=== PATIENT | female | born 1940 | race Caucasian/White ===

== ENCOUNTER 2018-01-30 09:42 | Inpatient (IN) ==
[2018-01-30] MEDS ORDERED: Diphtheria/Tetanus/Pertussis Vaccine Inj 0.5 ML Syringe IM ONE (09:59)
[2018-01-30] MEDS ORDERED: Morphine Inj 4 MG/ML Vial ONE (09:59)
[2018-01-30 10:19] LABS: Baso # (Auto) 0.1 th/mm3 (0.0-0.2); Baso % (Auto) 0.3 % (0.0-2.0); Eos # (Auto) 0.2 th/mm3 (0.0-0.4); Hemoglobin 14.3 gm/dL (11.6-15.3); Lymph % (Auto) 11.8 % (9.0-44.0); Mean Corpuscular HGB Conc 34.8 % (32.0-36.0); Mean Corpuscular Hemoglobin 33.6 pg (27.0-34.0); Mean Corpuscular Volume 96.6 fL (80.0-100.0); Mean Platelet Volume 8.3 fL (7.0-11.0); Mono # (Auto) 0.7 th/mm3 (0.0-0.9); Mono % (Auto) 4.4 % (0.0-8.0); Neut # (Auto) 14.1 th/mm3 (1.8-7.7); Neut % (Auto) 82.5 % (16.0-70.0); Platelet Count 278 th/mm3 (150-450); Red Blood Count 4.24 mil/mm3 (4.00-5.30); Red Cell Distribution Width 13.2 % (11.6-17.2); White Blood Count 17.1 th/mm3 (4.0-11.0)
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
[2018-01-30 10:30] LABS: Activated Partial Thrombo Time 21.9 sec (23.4-31.7); Prothrombin Time 10.6 sec (9.8-11.6)
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
[2018-01-30] MEDS ORDERED: Morphine Inj 4 MG/ML Vial IV.PUSH PRN (11:34)
[2018-01-30] MEDS: Pantoprazole Inj 40 MG Vial IV.PUSH SCH (12:26)
[2018-01-30] MEDS: Sod Chloride 0.9% Inj 1,000 ML IV.CONT SCH (12:31)
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
[2018-01-30 13:06] LABS: Baso # (Auto) 0.1 th/mm3 (0.0-0.2); Baso % (Auto) 0.2 % (0.0-2.0); Eos % (Auto) 0.1 % (0.0-4.0); Hematocrit 37.2 % (35.0-46.0); Hemoglobin 12.8 gm/dL (11.6-15.3); Lymph % (Auto) 3.9 % (9.0-44.0); Mean Corpuscular HGB Conc 34.4 % (32.0-36.0); Mean Corpuscular Hemoglobin 33.2 pg (27.0-34.0); Mean Corpuscular Volume 96.3 fL (80.0-100.0); Mean Platelet Volume 8.5 fL (7.0-11.0); Mono # (Auto) 1.6 th/mm3 (0.0-0.9); Mono % (Auto) 6.5 % (0.0-8.0); Neut # (Auto) 22.5 th/mm3 (1.8-7.7); Neut % (Auto) 89.3 % (16.0-70.0); Platelet Count 242 th/mm3 (150-450); Red Blood Count 3.86 mil/mm3 (4.00-5.30); Red Cell Distribution Width 13.2 % (11.6-17.2); White Blood Count 25.1 th/mm3 (4.0-11.0)
[2018-01-30] MEDS: Lidocaine 5% Patch T-DERMAL SCH (13:23)
[2018-01-30] MEDS: Methocarbamol 500 MG Tablet PO SCH ×2 (15:23→21:32)
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
[2018-01-30] MEDS: Senna/Docusate Sodium 8.6/50 MG Tablet PO SCH (20:21)
[2018-01-31] MEDS: Sod Chloride 0.9% Inj 1,000 ML IV.CONT SCH (02:55)
[2018-01-31 04:44] LABS: Baso % (Auto) 0.2 % (0.0-2.0); Hematocrit 31.4 % (35.0-46.0); Hemoglobin 10.8 gm/dL (11.6-15.3); Lymph # (Auto) 0.9 th/mm3 (1.0-4.8); Lymph % (Auto) 7.8 % (9.0-44.0); Mean Corpuscular HGB Conc 34.5 % (32.0-36.0); Mean Corpuscular Volume 95.6 fL (80.0-100.0); Mean Platelet Volume 8.4 fL (7.0-11.0); Mono # (Auto) 0.8 th/mm3 (0.0-0.9); Mono % (Auto) 7.1 % (0.0-8.0); Neut # (Auto) 9.5 th/mm3 (1.8-7.7); Neut % (Auto) 84.9 % (16.0-70.0); Platelet Count 166 th/mm3 (150-450); Red Blood Count 3.29 mil/mm3 (4.00-5.30); Red Cell Distribution Width 13.3 % (11.6-17.2); White Blood Count 11.2 th/mm3 (4.0-11.0)
[2018-01-31 05:01] LABS: Albumin 2.7 g/dL (3.4-5.0); Anion Gap 8 meq/L (5-15); Aspartate Aminotransferase 134 U/L (15-37); Blood Urea Nitrogen 21 mg/dL (7-18); Calcium 7.6 mg/dL (8.5-10.1); Carbon Dioxide 24.9 meq/L (21.0-32.0); Chloride 109 meq/L (98-107); Glomerular Filtration Rate 78 mL/min (>89); Glucose,Random 129 mg/dL (74-106); Potassium 3.5 meq/L (3.5-5.1); Sodium 142 meq/L (136-145)
[2018-01-31 05:04] LABS: Alanine Aminotransferase 125 U/L (10-53); Alkaline Phosphatase 54 U/L (45-117); Total Protein 5.7 g/dL (6.4-8.2)
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
[2018-01-31] MEDS: Methocarbamol 500 MG Tablet PO SCH ×3 (05:27→21:47)
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
[2018-01-31] MEDS: Lidocaine 5% Patch T-DERMAL SCH (09:17)
[2018-01-31] MEDS: Senna/Docusate Sodium 8.6/50 MG Tablet PO SCH ×2 (09:17→21:47)
[2018-01-31] MEDS: Polyethylene Glycol 3350 17 GM Packet PO SCH (09:18)
--- NOTE | 2018-01-31 09:52 | CT ---
EXAM DATE: 01/31/2018 9:38 AM EST AGE/SEX: 78 years / Female INDICATIONS: Altered Mental Status CLINICAL DATA: This is the patient's subsequent encounter. Patient reports that signs and symptoms h ave been present for 1 day and indicates a pain score of 0/10. MEDICAL/SURGICAL HISTORY: Hypertension. None. RADIATION DOSE: 56.35 CTDI (mGy) COMPARISON: [facility] [place], CT HEAD W/O CONTRAST, 01/30/2018. . TECHNIQUE: CT of the head without contrast. Using automated exposure control and adjustment of the mA and/or kV according to patient size, radiation dose was kept as low as reasonably achievable to ob tain optimal diagnostic quality images. DICOM format image data is available electronically for revi ew and comparison. FINDINGS: Cerebrum: The ventricles and cortical sulci are widened. There is decreased density in the cerebral white matter.. No evidence of midline shift, mass lesion, hemorrhage or acute infarction. No extraa xial fluid collections are seen. Posterior Fossa: The cerebellum and brainstem are intact. The 4th ventricle is midline. The cerebe llopontine angle is unremarkable. Extracranial: The visualized portion of the orbits is intact. Skull: The calvaria is intact. No evidence of skull fracture. CONCLUSION: 1. No acute abnormality is seen. 2. Age-related atrophy and suspected small vessel ischemic change in the white matter. . Electronically signed by: Bigg Delgado MD Board Certified Radiologist 01/31/2018 9:51 AM EST
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
[2018-01-31] MEDS: Pantoprazole Inj 40 MG Vial IV.PUSH SCH (11:16)
--- NOTE | 2018-02-01 02:01 | ECG ---
Date Performed: 01/31/2018 Time Performed: 07:57:18 PTAGE: 78 years EKG: Sinus rhythm with PAC(s). Possible anterior infarct - age undetermined Lateral T wave changes are nonspecific Low QRS voltages in precordial leads Abnormal ECG NO PREVIOUS TRACING DOCTOR: Nakul Guerrero Interpretating Date/Time 02/01/2018 01:59:33
[2018-02-01 05:34] LABS: Baso % (Auto) 0.3 % (0.0-2.0); Eos % (Auto) 0.3 % (0.0-4.0); Hematocrit 29.2 % (35.0-46.0); Hemoglobin 10.2 gm/dL (11.6-15.3); Lymph # (Auto) 0.9 th/mm3 (1.0-4.8); Lymph % (Auto) 7.8 % (9.0-44.0); Mean Corpuscular HGB Conc 34.9 % (32.0-36.0); Mean Corpuscular Volume 94.7 fL (80.0-100.0); Mean Platelet Volume 8.5 fL (7.0-11.0); Mono # (Auto) 0.9 th/mm3 (0.0-0.9); Mono % (Auto) 7.2 % (0.0-8.0); Neut # (Auto) 10.1 th/mm3 (1.8-7.7); Neut % (Auto) 84.4 % (16.0-70.0); Platelet Count 154 th/mm3 (150-450); Red Blood Count 3.08 mil/mm3 (4.00-5.30); Red Cell Distribution Width 13.2 % (11.6-17.2); White Blood Count 11.9 th/mm3 (4.0-11.0)
[2018-02-01 05:45] LABS: Alanine Aminotransferase 100 U/L (10-53); Albumin 2.8 g/dL (3.4-5.0); Anion Gap 8 meq/L (5-15); Aspartate Aminotransferase 90 U/L (15-37); Blood Urea Nitrogen 15 mg/dL (7-18); Calcium 7.9 mg/dL (8.5-10.1); Carbon Dioxide 28.2 meq/L (21.0-32.0); Chloride 102 meq/L (98-107); Glomerular Filtration Rate Greater Than 89 mL/min (>89); Glucose,Random 112 mg/dL (74-106); Potassium 3.5 meq/L (3.5-5.1); Sodium 138 meq/L (136-145)
[2018-02-01 05:48] LABS: Alkaline Phosphatase 57 U/L (45-117); Total Protein 5.9 g/dL (6.4-8.2)
[2018-02-01] MEDS: Methocarbamol 500 MG Tablet PO SCH ×4 (06:27→22:59)
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
[2018-02-01] MEDS: Polyethylene Glycol 3350 17 GM Packet PO SCH (10:31)
[2018-02-01] MEDS: Senna/Docusate Sodium 8.6/50 MG Tablet PO SCH ×2 (10:32→20:47)
[2018-02-01] MEDS: Lidocaine 5% Patch T-DERMAL SCH (10:33)
[2018-02-01] MEDS: Enoxaparin Inj 30 MG/0.3 ML Syringe SQ SCH (10:39)
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
[2018-02-02] MEDS: Methocarbamol 500 MG Tablet PO SCH ×3 (05:34→21:05)
[2018-02-02 05:43] LABS: Anion Gap 6 meq/L (5-15)
[2018-02-02 05:48] LABS: Alanine Aminotransferase 84 U/L (10-53); Albumin 2.6 g/dL (3.4-5.0); Alkaline Phosphatase 57 U/L (45-117); Aspartate Aminotransferase 78 U/L (15-37); Blood Urea Nitrogen 15 mg/dL (7-18); Calcium 7.7 mg/dL (8.5-10.1); Carbon Dioxide 30.9 meq/L (21.0-32.0); Chloride 97 meq/L (98-107); Glomerular Filtration Rate 86 mL/min (>89); Glucose,Random 115 mg/dL (74-106); Sodium 134 meq/L (136-145); Total Protein 5.8 g/dL (6.4-8.2)
[2018-02-02 05:59] LABS: Potassium 2.9 meq/L (3.5-5.1)
[2018-02-02] MEDS: Potassium Chlor 20 mEq Premix 20 MEQ/100 ML PIGGYBACK IV.SIG SCH ×2 (06:45→10:32)
[2018-02-02] MEDS: Polyethylene Glycol 3350 17 GM Packet PO SCH (08:40)
[2018-02-02] MEDS: Enoxaparin Inj 30 MG/0.3 ML Syringe SQ SCH (08:40)
[2018-02-02] MEDS: Senna/Docusate Sodium 8.6/50 MG Tablet PO SCH ×2 (08:41→21:05)
[2018-02-02] MEDS: Lidocaine 5% Patch T-DERMAL SCH (08:42)
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
[2018-02-02] MEDS: Potassium Chloride 25 MEQ Effervescent Tablet PO SCH ×2 (10:10→21:05)
[2018-02-03] MEDS: Methocarbamol 500 MG Tablet PO SCH (05:05)
[2018-02-03] MEDS: Enoxaparin Inj 30 MG/0.3 ML Syringe SQ SCH (09:15)
[2018-02-03] MEDS: Potassium Chloride 25 MEQ Effervescent Tablet PO SCH (09:16)
[2018-02-03] MEDS: Senna/Docusate Sodium 8.6/50 MG Tablet PO SCH (09:17)
[2018-02-03] MEDS: Polyethylene Glycol 3350 17 GM Packet PO SCH (09:17)
[2018-02-03] MEDS: Lidocaine 5% Patch T-DERMAL SCH (09:17)
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
== END 2018-02-03 11:10 ==
LOC: NEPE 09:42 → NEDA 11:17 → N03 14:36 → N06 01-31 15:20
PROVIDERS: ADMIT Surgery; ATTEND Surgery